=== PATIENT | female | born 1975 | race Caucasian/White ===

== ENCOUNTER 2021-07-11 06:57 | Outpatient (CLI) | payer BC, SELFPAY ==
--- NOTE | 2021-07-11 06:58 | CT_ITS ---
EXAM: CT ABDOMEN WITH INTRAVENOUS CONTRAST CLINICAL INDICATION: Abdominal pain, history of hernia TECHNIQUE: Helically acquired images were obtained of the abdomen with intravenous contrast. This CT exam was performed using one or more of the following dose reduction techniques: automated exposure control, adjustment of the mA and/or kV according to patient size, and/or use of iterative reconstruction technique. This report was created using [employer] report generation technology. Oral contrast was administered. Coronal and sagittal reformatted images were created and reviewed. CONTRAST: 100CC ISOVUE 300 COMPARISON: None. FINDINGS: LOWER THORAX: Unremarkable. Lung bases are clear. No cardiomegaly. No significant pericardial effusion. LIVER: Unremarkable. Homogeneous. No focal mass. GALLBLADDER AND BILE DUCTS: Unremarkable. No calcified gallstones. No gallbladder distention or wall edema. No intra- or extrahepatic biliary ductal dilation. PANCREAS: Unremarkable. No focal cystic or solid mass. SPLEEN: Unremarkable. Normal size without focal cystic or solid mass. ADRENALS: Unremarkable. No nodules. KIDNEYS AND URETERS: Unremarkable. Normal renal size and position. No hydronephrosis. STOMACH AND BOWEL: Periumbilical hernia with defect measuring 5.6 cm wide and hernia sac measuring 4.4 x 7.7 cm (AP by transverse). The hernia sac contains transverse colon. No hernia sac fluid. No stomach or bowel distention. No focal inflammatory change. INTRAPERITONEAL SPACE: Unremarkable. No ascites or other fluid collection. No free air. BONES/JOINTS: Unremarkable. No suspicious lytic or blastic abnormality. SOFT TISSUES: See above. VASCULATURE: Mild atherosclerosis. Abdominal aorta is non-dilated. LYMPH NODES: No enlarged lymph nodes. OTHER FINDINGS: Note: Wall thickening. CT/Abdomen WITH ORAL Cont Only IMPRESSION: Periumbilical hernia containing transverse colon. No evidence of colonic strangulation. No bowel obstruction. Electronically Signed: Jl Cat MD (Brooks) at 9:49 EST ,
== END 2021-07-11 23:59 | disposition home or self-care (01) ==
LOC: CT 06:58
PROVIDERS: PCP Nurse Practitioner Family; Referring Provider Surgery; Visit Provider Surgery
DX: K42.9 Umbilical hernia without obstruction or gangrene (principal); R10.9 Unspecified abdominal pain; Z87.19 Personal history of other diseases of the digestive system; Z98.890 Other specified postprocedural states
CPT/HCPCS: 74150

== ENCOUNTER 2021-08-30 10:36 | Observation (INO) | payer BC, SELFPAY ==
--- NOTE | 2021-08-25 10:56 | EKG12_ITS ---
Test Reason : PREOP Blood Pressure : / mmHG Vent. Rate : 067 BPM Atrial Rate : 067 BPM P-R Int : 162 ms QRS Dur : 122 ms QT Int : 406 ms P-R-T Axes : 046 -09 040 degrees QTc Int : 429 ms Normal sinus rhythm Normal ECG Confirmed by ZACHARY MATHEW, ALLYN ([id number]), medical transcription editor NATTY WHITLEY ([id number]) on 08/26/2021 11:23:55 AM Referred By: Yoni Funes Confirmed By:ALLYN SHARMA MD
[2021-08-25 12:11] LABS: Hematocrit 39.9 % (37-47); Hemoglobin 13.3 g/dL (12.0-15.0); Mean Corp Hgb Conc 33.3 g/dL (32-36); Mean Corpuscular Hgb 29.9 pg (27.0-32.0); Mean Corpuscular Volume 89.7 fL (81-99); Mean Platelet Vol. 8.8 fl (6.2-12.0); Platelet Count 325 K/mm3 (150-450); RBC Distribution Width CV 13.3 % (11.6-14.6); RBC Distribution Width SD 43.9 fl (35.1-43.9); Red Blood Count 4.45 M/mm3 (4.2-5.4); White Blood Count 7.5 K/mm3 (4.4-11.0)
[2021-08-25 12:33] LABS: Anion Gap 5 (5-15); BUN 17 mg/dL (7-18); BUN/Creat Ratio 25.7 RATIO (10-20); Calcium,Total 9.1 mg/dL (8.5-10.1); Chloride 105 mmol/L (98-107); Creatinine, Serum 0.66 mg/dL (0.55-1.02); EST Glomerular Filtration Rate 103 mL/min (>60); Est Glom Filt Rate - Afr Amer 125 mL/min (>60); Glucose 101 mg/dL (74-106); Potassium 3.7 mmol/L (3.5-5.1); Sodium Level 138 mmol/L (136-145)
[2021-08-30] VITALS (10 sets, daily range): BP systolic 109–139; BP diastolic 60–91; PULSE 66–89; RESP 16–18; TEMP 36.6–37.2; O2SAT 92–99; BMI 39.8
--- NOTE | 2021-08-30 06:11 | PCM.HP.BLA ---
History and Physical Date of Admission: 08/30/21 Chief Complaint: hernia repair 08/30 RC Last Picker Required: No Is patient in pain?: No Allergies Gadolinium-MRI Contrast Medium Allergy (Mild, Verified 08/25/21 13:21) Hives naproxen [From Aleve] Allergy (Mild, Verified 08/25/21 13:21) Upset Stomach Medications cholecalciferol (vitamin D3) 125 mcg (5,000 unit) capsule 125 mcg PO DAILY 07/04/21 [History Confirmed 08/25/21] diphenhydramine HCl 25 mg tablet 50 mg PO QHS 07/04/21 [History Confirmed 08/25/21] esomeprazole magnesium 20 mg capsule,delayed release 20 mg PO DAILY 07/04/21 [History Confirmed 08/25/21] hydrochlorothiazide 25 mg tablet 25 tablet PO DAILY 07/04/21 [History Confirmed 08/25/21] lisinopril 10 mg tablet 10 tablet PO DAILY 07/04/21 [History Confirmed 08/25/21] metoprolol succinate 100 mg tablet,extended release 24 hr 100 mg PO DAILY 07/04/21 [History Confirmed 08/25/21] trazodone 100 mg tablet 100 mg PO DAILY 07/04/21 [History Confirmed 08/25/21] docusate sodium 50 mg PO BID 08/23/21 [History Confirmed 08/25/21] fluticasone propionate [Flonase Allergy Relief] 1 spray INTRANASAL QHS 08/23/21 [History Confirmed 08/25/21] potassium 99 mg PO DAILY 08/23/21 [History Confirmed 08/25/21] Is last menstrual period known: No Post menopausal: No Patient : No PFSH Medical History Abdominal pain Acid reflux Anemia Former smoker HTN (hypertension) Insomnia Surgical History H/O umbilical hernia repair S/P hysterectomy S/P nasal septoplasty Family History Mother Heart disease Hypertension Social History Smoking Status: Former smoker alcohol intake: never HPI HPI HPI: STAN BOND, is a 46 F who presents to the office today for an update history and physical. Patient denies recent hospitalizations or illnesses since her last office visit. She denies any medications changes. She notes no recent changes in bowel habits or pain at the hernia site. She denies cardiac and pulmonary history other than hypertension and seasonal allergies. She denies previous complications with anesthesia. She has had multiple abdominal surgeries. Patient's previous history per Dr. Funes: STAN BOND, is a 45 F who presents to the office today for surgical consultation regarding a umbilical hernia. The patient is referred by Mitchell Redd CNP and a written copy of my surgical consult and recommendations will return to her. The patient is concerned that the umbilical hernia is chronically uncomfortable. Calculated body weight is 245 pounds with a BMI of 38.98 The patient states that she had significant amount of abdominal pain March 2020. We have evidence that [facility] listed she was taken to surgery by Dr. Lucía Orta and underwent a neck exploratory laparotomy repair of an umbilical hernia total abdominal hysterectomy bilateral salpingo-oophorectomy lysis of adhesions. Her midline incision was closed with PDS. All of this procedure was done for endometriosis. Apparently extensive amount of lysis of adhesions was performed. There is significant amount of reactive inflammatory change due to the endometriosis. The patient states that soon thereafter she developed recurrent significant bulging at the umbilicus portion and now the whole area bulges out and is quite painful. She claims that she becomes nauseated. She has not required any hospitalization for small bowel obstruction. She has not notified her operating surgeon of this complication. She used to be a cigarette smoker but quit 2 years ago. She denies any bright red blood per rectum or melena. She has not had any current imaging. She is a type II diabetic. She states that she lost more than 50 pounds in weight over the past period of time and was able to come off of her diabetic medications and simply now is diet controlled. STAN BOND, is a 45 F who presents to the office today for ongoing discussion regarding a incarcerated recurrent ventral incisional hernia. The patient had it repaired during a gynecology oncology procedure. It has now recurred. There appears to be a ventral hernia in the supraumbilical position containing transverse colon. No findings suggest bowel obstruction. CT imaging obtained on July 11, 2021 as noted below. The patient notes increasing discomfort in this large bulge of the right of the umbilicus. She takes 2 stool softeners daily. July 11, 2021 EXAM: CT ABDOMEN WITH INTRAVENOUS CONTRAST CLINICAL INDICATION: Abdominal pain, history of hernia TECHNIQUE: Helically acquired images were obtained of the abdomen with intravenous contrast. This CT exam was performed using one or more of the following dose reduction techniques: automated exposure control, adjustment of the mA and/or kV according to patient size, and/or use of iterative reconstruction technique. This report was created using [employer] report generation technology. Oral contrast was administered. Coronal and sagittal reformatted images were created and reviewed. CONTRAST: 100CC ISOVUE 300 COMPARISON: None. FINDINGS: LOWER THORAX: Unremarkable. Lung bases are clear. No cardiomegaly. No significant pericardial effusion. LIVER: Unremarkable. Homogeneous. No focal mass. GALLBLADDER AND BILE DUCTS: Unremarkable. No calcified gallstones. No gallbladder distention or wall edema. No intra- or extrahepatic biliary ductal dilation. PANCREAS: Unremarkable. No focal cystic or solid mass. SPLEEN: Unremarkable. Normal size without focal cystic or solid mass. ADRENALS: Unremarkable. No nodules. KIDNEYS AND URETERS: Unremarkable. Normal renal size and position. No hydronephrosis. STOMACH AND BOWEL: Periumbilical hernia with defect measuring 5.6 cm wide and hernia sac measuring 4.4 x 7.7 cm (AP by transverse). The hernia sac contains transverse colon. No hernia sac fluid. No stomach or bowel distention. No focal inflammatory change. INTRAPERITONEAL SPACE: Unremarkable. No ascites or other fluid collection. No free air. BONES/JOINTS: Unremarkable. No suspicious lytic or blastic abnormality. SOFT TISSUES: See above. VASCULATURE: Mild atherosclerosis. Abdominal aorta is non-dilated. LYMPH NODES: No enlarged lymph nodes. OTHER FINDINGS: Note: Wall thickening. CT/Abdomen WITH ORAL Cont Only IMPRESSION: Periumbilical hernia containing transverse colon. No evidence of colonic strangulation. No bowel obstruction. Electronically Signed: Jl Cat MD (Brooks) at 9:49 EST Reading Location ID and State: / [place] , Service support , ROS General General: No weight change, appetite, fatigue, colon cancer, breast cancer or weakness HEENT HEENT: No difficulty swallowing, eye injury, eye surgery, swollen glands or hoarseness Endo Endocrine: No thyroid disease, diabetes mellitus, thyroid cancer, Hair loss, heat intolerance or cold intolerance Skin Skin: No rash or changing moles Breast Breast: No left breast lump, right breast lump, nipple discharge, breast pain, abnormal mammogram, abnormal US or breast enlargement [facility] Musculoskeletal: No back problems, arthritis, rheumatoid arthritis, gout or joint pain Cardio Cardiovascular: Yes high blood pressure; No murmur, pacemaker, heart disease, atrial fibrillation, heart attack, heart stent, palpitations, shortness of breat with exertion or chest pain Psych Psychiatric: No depression, anxiety or hearing voices Resp Respiratory: No shortness of breath, No sleep apnea, No cough, No COPD, No asthma, No emphysema and No wheezing Gastro Gastrointestinal: Yes abdominal pain, Yes nausea or vomiting, No diarrhea, Yes constipation, No blood in stool, Yes acid reflux, No hemorrhoids, No ulcers, No gallbladder problem and No black,tarry stools Aj Hematologic: No blood thinners, No blood disorders, No bleeding, No anemia and No blood clots Neuro Neurologic: No system reviewed and no additional complaints, except as documented, No as per HPI, No abnormal gait, No abnormal hearing, No abnormal movements, No abnormal speech, No behavioral changes, No burning sensations, No confusion, No convulsions, No disequilibrium, No dizziness, No localized weakness, No frequent falls, No headache(s), No lack of coordination, No loss of vision, No memory loss, No numbness, No other visual disturbances, No radicular pain, No restless legs, No sensory deficit, No syncope, No tingling, No tremor(s), No weakness and No other Exam Const General: cooperative, healthy appearing, comfortable and no acute distress Nutritional Appearance: obese [facility] Head: normal to inspection Eyes General: appearance normal, both eyes and all related structures Neck Neck: normal visual inspection Neck mass: No Resp Effort & Inspection: normal respiratory effort Auscultation: clear to auscultation bilaterally Cardio Rate: regular rate Rhythm: regular rhythm GI Inspection: normal to inspection Palpation: soft and hernia Other: Midline incision that was initiated to the left of the umbilicus down to the pubis. Significant defect noted at the umbilical level appears to be multifaceted tender and difficult to completely reduce. Bowel loops palpable. The remainder of the abdomen is soft and nontender. [facility] Cervical Spine: normal cervical lordosis Skin General: no rashes or lesions noted Neuro General: no focal motor deficits and CN's II-XI intact bilaterally Extrem General: normal to inspection Psych Appearance: grossly normal Affect: normal affect Assessment and Plan Assessment and Plan (1) Ventral incisional hernia without obstruction or gangrene: Status: Acute Plan - Court RASHID, CINDY: Dr. Funes will plan to perform a hybrid open and laparoscopic ventral incisional hernia repair with mesh. Procedure details, risks and benefits have been reviewed. Patient has had the opportunity to ask and have questions answered. Post-operative instructions were provided to the patient. Patient has had the opportunity to ask and have questions answered. Patient verbally understands and agrees with the plan. Side Notes per Dr. Funes: Complex recurrent incarcerated ventral incisional hernia to the right of the umbilicus involving a significant loop of transverse colon. There is a significant fascial gap. I have discussed with the patient treatment options. I propose a direct approach in that location taking great caution as based upon the CT imaging the transverse colon is immediately beneath the skin. There appears to be an additional small defect inferior to the major defect. Anticipate sharp dissection at this area and identification of the fascial edges with then subsequent safe laparoscopic port insertions. Recurrent ventral incisional hernia. Plan hybrid repair. The patient is aware of technique, benefit, risk and alternatives. We will proceed as noted. She is additionally aware that I anticipate a transabdominal plane nerve block to assist her with postoperative comfort. She is aware that she may have extensive intra-abdominal adhesions from her previous MILITARY NURSE surgery. Yoni Funes M.D., F.A.C.S.
--- NOTE | 2021-08-30 07:12 | DCINST_ITS ---
Documented by User: Dr. Yoni Funes MD 08/30/21 07:13 Discharge Instructions Diet Discharge Diet: Light diet - advance as tolerated (if you have questions about your diet instructions, please talk to you doctor.) Activity Discharge Activity: May Not Drive (for 3-5 days or while taking narcotic pain medicine.) May shower in (days): 1 Lifting Restrictions: 10 pounds Dressing / Incision Call your doctor if your incision/area has: Continuous Slow Oozing, Sudden Increased Bleeding, Increased Pain/ Swelling, Increased Redness and Foul Smelling Discharge Call your doctor if you observe: Fever of 101 or Higher Suture Line Care: Avoid Pulling/Pushing and Avoid Pinching/Bending Additional Dressing/Incision Instructions:: Change or remove dressing in 4 days. Leave steri-strips in place for 1 week. Follow Up Care Please Follow Up With: Yoni Funes MD When: Call [phone] to make an appointment to be seen in about 10 days. Test Results: Test results from this visit will be discussed in further detail at your follow-up appointment, if applicable. Discharge Plan Admission Admit Date/Time: 08/30/21 10:36 Primary Reason for Your Visit: Ventral incisional hernia repair with mesh Attending Provider: Yoni Funes Primary Care Provider: Mitchell Redd NP Instructions Additional Instructions / Restrictions: You may take Miralax daily to assist with bowel movements Discharge Orders/Prescriptions Prescriptions: New oxycodone 5 mg Tablet 5 mg PO Q6H PRN PRN (Reason: Pain Score 4-10) 3 Days Qty: 10 RF: 0 Continued hydrochlorothiazide 25 mg tablet 25 tablet PO DAILY RF: 0 lisinopril 10 mg tablet 10 tablet PO DAILY RF: 0 trazodone 100 mg tablet 100 mg PO DAILY RF: 0 metoprolol succinate 100 mg tablet extended release 24 hr 100 mg PO DAILY RF: 0 esomeprazole magnesium [Nexium] 20 mg capsule,delayed release(DR/EC) 20 mg PO DAILY RF: 0 cholecalciferol (vitamin D3) 125 mcg (5,000 unit) capsule 125 mcg PO DAILY RF: 0 diphenhydramine HCl [Benadryl Allergy] 25 mg tablet 50 mg PO QHS RF: 0 docusate sodium 50 mg Tablet 50 mg PO BID RF: 0 potassium 95 mg Tablet 99 mg PO DAILY RF: 0 fluticasone propionate [Flonase Allergy Relief] 50 mcg/actuation [place],Suspension 1 spray INTRANASAL QHS RF: 0 Referrals / Follow Up: Mitchell Redd NP, HEALTHCARE SCIENCE SPECIALIST-C [Primary Care Provider] - Disposition Disposition (needs filled in before D/C Order can be placed): Home, Self Care Documented by User: Court RASHID PA-C 08/31/21 15:02 Discharge Plan Admission Admit Date/Time: 08/30/21 10:36 Primary Reason for Your Visit: Ventral incisional hernia repair with mesh Attending Provider: Yoni Funes Primary Care Provider: Mitchell Redd NP Instructions Additional Instructions / Restrictions: You may take Miralax daily to assist with bowel movements Discharge Orders/Prescriptions Prescriptions: New oxycodone 5 mg Tablet 5 mg PO Q6H PRN PRN (Reason: Pain Score 4-10) 3 Days Qty: 10 RF: 0 Continued hydrochlorothiazide 25 mg tablet 25 tablet PO DAILY RF: 0 lisinopril 10 mg tablet 10 tablet PO DAILY RF: 0 trazodone 100 mg tablet 100 mg PO DAILY RF: 0 metoprolol succinate 100 mg tablet extended release 24 hr 100 mg PO DAILY RF: 0 esomeprazole magnesium [Nexium] 20 mg capsule,delayed release(DR/EC) 20 mg PO DAILY RF: 0 cholecalciferol (vitamin D3) 125 mcg (5,000 unit) capsule 125 mcg PO DAILY RF: 0 diphenhydramine HCl [Benadryl Allergy] 25 mg tablet 50 mg PO QHS RF: 0 docusate sodium 50 mg Tablet 50 mg PO BID RF: 0 potassium 95 mg Tablet 99 mg PO DAILY RF: 0 fluticasone propionate [Flonase Allergy Relief] 50 mcg/actuation [place],Suspension 1 spray INTRANASAL QHS RF: 0 Referrals / Follow Up: Mitchell Redd NP, HEALTHCARE SCIENCE SPECIALIST-C [Primary Care Provider] - Disposition Disposition (needs filled in before D/C Order can be placed): Home, Self Care
[2021-08-30] MEDS: Lactated Ringers 1,000 ML 15 ML IV ×2 (07:18→10:30)
[2021-08-30] MEDS: Cefazolin 2 GM in 0.9% Normal Saline 100 ML IV (07:30)
--- NOTE | 2021-08-30 07:30 | HERN_PTH ---
PATIENT: STAN BOND LOC: MS3 U#:[id number] AGE/SX: 46/F ROOM: MD322 RE08/30/[address]: Dr. Yoni Funes MD : [id number] BED: 1 DIS: 08/31/2021 SPEC #: [id number] RECD: 08/30/21 11:07 STATUS: DEBBIE BLESSING #: [id number] CARLOTTA: 08/30/21 07:[address]: Yoni Funes DEPT: SURGICAL PATHOLOGY RECD BY: Delaney Rivera ENTERED: 08/30/21 12:28 SP TYPE: Hernia OTHR DR: ZAHIDA Felder Tissues: HERNIA Procedures: Surgery Specimen Level II HEADER OPERATION: Lysis of adhesions, hybrid open and laparoscopic PRE-OP DIAGNOSIS: Ventral incisional hernia TISSUE SUBMITTED: Ventral hernia sac and contents MICROSCOPIC DIAGNOSIS Ventral hernia sac and contents, excision: Fibrosis and minimal chronic inflammation. AM:sharon 08/31/2021 MICROSCOPIC DESCRIPTION Slides are reviewed. GROSS DESCRIPTION Received in fixative is one container labeled with the patient's name and designated hernia sac and contents. The specimen consists of multiple irregular fragments of pink-yellow fibrofatty tissue ranging in size from 1.8 to 10 cm. Serial sections do not reveal mass lesions. Singer And Unloader sections are submitted in one cassette. / AM:sharon 08/30/2021 TC:5 CPT: 89954
[2021-08-30] MEDS: Bupivacaine 0.25% 30 ML Vial (07:55)
[2021-08-30] MEDS: 0.9% Normal Saline (Pres. free 10 ML Vial (07:55)
[2021-08-30] MEDS: BUPIVACAINE LIPOSOME/PF 20 ML VIAL OPERA.SITE (07:55)
[2021-08-30] MEDS: Lidocaine 1% (20 ml mdv) 20 ML Vial (07:55)
--- NOTE | 2021-08-30 10:28 | OP.PCM_ITS ---
Problems Associated Problem List Diagnoses (1) Ventral incisional hernia without obstruction or gangrene: Report of Operation Date of Procedure: 08/30/21 Pre-Operative Diagnosis: Current ventral incisional hernia Post-Operative Diagnosis: Recurrent ventral incisional hernia with extensive intra-abdominal adhesions Surgery/Procedure Performed:: Laparoscopic lysis of adhesions. Hybrid open and laparoscopic recurrent ventral incisional herniorrhaphy with 25.4 x 20.[address] mesh. Bilateral transabdominal plane block Ventral light ST. Reference [id number]. Lot [id number], expiry date 08/15/2022 Description of Surgical Findings:: Timeout informed consent was obtained. 46-year-old female was taken to the operating placed on the table underwent general endotracheal intubation esthesia. Ancef 2 g were given intravenously. The abdomen was sterilely prepped and draped. Ioban draping was used as well. A supra and vertical transverse incision was created sharp blunt dissection was used to identify the sizable hernia sac. Initially I tried to free the hernia sac and get into the retrorectus plane but this was densely adherent. Colon was distended and pushing out through the incision. I eventually after trying to simply amputated the sac. There were multiple intra-abdominal adhesions of the colon and greater omentum to the anterior abdominal wall which I partially lysed just to gain access to the fascia. I then approximated the fascia midline vertically with multiple simple sutures of 0 Nurolon. Left a gap inserted in a sun catheter insufflated the abdomen. There remained multiple adhesions of omentum to the anterior abdominal wall superiorly and they were densely adherent inferiorly and suprapubically. Taking over 1 hour of adhesiolysis time tr ansected these adhesions using harmonic scalpel for hemostasis. Finding with no bowel injury was able to completely mobilize greater omentum placed that back over the intestine. Made measurements and then I selected a 25.4 x 20.[address] mesh. 4 corner sutures of 2-0 Prolene was placed. The mesh was furled placed within the abdomen unfurled making sure that the nonadherent side was ad jacent to the greater omentum. I used a grainy needle and at 4 corners. She did the mesh up. The inferior suture broke so I had to use a grainy needle and a 0 Prolene to secure that area. Having achieved that I had very nice positioning of the mesh using secure strap at approximately 2 cm intervals completely around the periphery. I further secured it midline and in the midportion of the periphery to assure good adherence and minimize chance for seroma. I felt that excellent coverage and positioning was achieved. I then used saline to irrigate moisten the mesh. I assured that the greater omentum was covering the S small bowel. I then used 0.5% Marcaine mixed with 1% lidocaine mixed with Exparel and did a bilateral transabdominal spine block under laparoscopic visualization. I had good visualization was able to achieve bilateral subcostal and lateral abdominal injections. The abdomen was now allowed to deflate of the CO2. The fascia at the Goodwin site with further secured with simple sutures of 0 Nurolon. The subcutaneous tissue in that area is partially approximated interrupted 3-0 Vicryl. Skin edges were approximated and applied a running subicular 4 Monocryl. Steri- Strips Telfa OpSite dressings applied. Sponge and instrument and needle counts were reported to the surgeon be correct. Specimens hernia sac. Drains none. Blood loss minimal. Operative time appr oximately 2 hours and 45 minutes. The patient was taken to the recovery room in satisfactory addition without apparent complication Yoni Funes M.D., F.A.C.S. Surgeon: Yoni Funes Type of Anesthesia: General and Local Anesthesiologist: Alicia Davidson
[2021-08-30] MEDS: Lactated Ringers 1,000 ML 40 ML IV (12:11)
[2021-08-30] MEDS: Acetaminophen 500 MG Tablet 1000 MG PO ×3 (12:19→23:44)
--- NOTE | 2021-08-30 14:38 | PCM.PN.SRG ---
Subjective Subjective Notes abdominal soreness however she has been already able to do 2 laps around the unit. No nausea. She is hungry. Objective Data Objective Data Vital Signs: Vital Signs Temp Pulse Resp BP Pulse Ox 98 F 84 18 124/75 H 94 08/30/21 13:41 08/30/21 13:41 08/30/21 13:41 08/30/21 13:41 08/30/21 13:41 Oxygen Delivery Method Room Air Weight: 246 lb 14.684 oz Body Mass Index (BMI) 39.8 Intake & Output: Intake and Output for Last 24 Hours 08/28/21 08/29/21 08/30/21 23:59 23:59 23:59 Intake Total 1133.5 / 1133.5 Output Total 200 / 200 Balance 933.5 / 933.5 Lab / Micro Data Result Diagrams: 08/25/21 11:17 08/25/21 11:17 Micro: Microbiology 08/25/21 10:00 Interface Orders SARS-CoV-2 Antigen (Rapid) - Final Assessment & Plan Assessment/Plan (1) Ventral incisional hernia without obstruction or gangrene: PLAN: For the extent of the operative intervention the patient is doing remarkably well. I will initiate on a clear liquid diet. She has been encouraged to continue to ambulate. Progress and prognosis at this point are good. Yoni Funes M.D., F.A.C.S.
[2021-08-30] MEDS: oxyCODONE 5 MG Tablet PO ×2 (14:40→21:01)
[2021-08-30] MEDS: DiphenhydrAMINE 25 MG Capsule 50 MG PO (21:00)
[2021-08-30] MEDS: Docusate Sodium 100 MG Capsule PO (21:00)
[2021-08-31 03:32] VITALS: BP 142/69; PULSE 71; RESP 16; TEMP 36.9; O2SAT 97
[2021-08-31] MEDS: oxyCODONE 5 MG Tablet PO ×2 (04:48→16:28)
[2021-08-31] MEDS: Acetaminophen 500 MG Tablet 1000 MG PO ×2 (04:56→14:33)
--- NOTE | 2021-08-31 05:33 | PCM.PN.SRG ---
Subjective Subjective Patient is more sore in the abdomen this morning. Otherwise doing well. I found her standing at the bedside. She has had a minimal amount of flatus. Absolutely no nausea. Objective Data Objective Data Vital Signs: Vital Signs Temp Pulse Resp BP Pulse Ox 98.5 F 71 16 142/69 H 97 08/31/21 03:32 08/31/21 03:32 08/31/21 03:32 08/31/21 03:32 08/31/21 03:32 Oxygen Delivery Method Room Air Weight: 246 lb 14.684 oz Body Mass Index (BMI) 39.8 Intake & Output: Intake and Output for Last 24 Hours 08/29/21 08/30/21 08/31/21 23:59 23:59 23:59 Intake Total 1433.5 / 1433.5 Output Total 200 / 200 Balance 1233.5 / 1233.5 Lab / Micro Data Result Diagrams: 08/25/21 11:17 08/25/21 11:17 Micro: Microbiology 08/25/21 10:00 Interface Orders SARS-CoV-2 Antigen (Rapid) - Final Physical Exam Narrative Alert, comfortable, no distress Resp normal respiratory effort GI GI Narrative: Soft, distended, occasional bowel sounds, dressings clean and dry Assessment & Plan Assessment/Plan (1) Ventral incisional hernia without obstruction or gangrene: PLAN: Patient is making excellent progress so far. Encourage ambulation. Will initiate transitional diet. Hopeful discharge later today.
[2021-08-31 06:02] LABS: Hematocrit 39.8 % (37-47); Hemoglobin 13.1 g/dL (12.0-15.0); Mean Corp Hgb Conc 32.9 g/dL (32-36); Mean Corpuscular Hgb 29.6 pg (27.0-32.0); Mean Platelet Vol. 8.6 fl (6.2-12.0); Platelet Count 339 K/mm3 (150-450); RBC Distribution Width CV 13.7 % (11.6-14.6); RBC Distribution Width SD 45.2 fl (35.1-43.9); Red Blood Count 4.42 M/mm3 (4.2-5.4); White Blood Count 11.1 K/mm3 (4.4-11.0)
[2021-08-31 06:46] LABS: Anion Gap 5 (5-15); BUN 12 mg/dL (7-18); BUN/Creat Ratio 16.8 RATIO (10-20); Calcium,Total 8.6 mg/dL (8.5-10.1); Chloride 106 mmol/L (98-107); Creatinine, Serum 0.71 mg/dL (0.55-1.02); EST Glomerular Filtration Rate 95 mL/min (>60); Est Glom Filt Rate - Afr Amer 114 mL/min (>60); Estimated Creatinine Clearance 94.66 ml/min; Glucose 135 mg/dL (74-106); Potassium 4.3 mmol/L (3.5-5.1); Sodium Level 137 mmol/L (136-145)
[2021-08-31 07:58] VITALS: BP 115/70; PULSE 77; RESP 16; TEMP 36.6
[2021-08-31] MEDS: Potassium Chloride Oral Tablet 10 MEQ PO (08:14)
[2021-08-31] MEDS: Enoxaparin 40 MG/0.4 ML Syringe SC (10:45)
[2021-08-31] MEDS: hydroCHLOROthiazide 25 MG Tablet PO (10:45)
[2021-08-31] MEDS: traZODone 100 MG Tablet PO (10:45)
[2021-08-31] MEDS: Docusate Sodium 100 MG Capsule PO (10:45)
[2021-08-31 10:47] VITALS: PULSE 77
[2021-08-31] MEDS: Lisinopril 10 MG Tablet PO (10:47)
[2021-08-31] MEDS: Pantoprazole Sodium 20 MG Tablet PO (10:47)
[2021-08-31] MEDS: Metoprolol(XL)Succ 100 MG Tablet PO (10:47)
--- NOTE | 2021-08-31 10:50 | CASEMGMT ---
RN CM Face to Face with patient for initial transition planning/care coordination assessment. RN CM introduced self and role at [facility]. Patient lying in bed, alert and oriented. Patient willing to participate in assessment and is able to answer all questions appropriately. Care providers, pharmacy, and demographics verified. Patient wishes to discharge home, denies need for home health at this time. Patient states she has no further needs or concerns at this time. CM to follow for discharge planning needs that may arise. PCP: Mitchell Redd [employer] [employer] [employer] Specialists: none Preferred Pharmacy: [facility] at discharge. Insurance: [employer] Prescription Benefit: yes Living Will/HPOA: none LNOK: Living Arrangements: Patient lives with and mother in 2 story home with bed and bath on first floor. Patient states she is independent at home. Transportation: self, , mother DME/HHC: Patient states she has shower chair, cane, walker, wheelchair at home Patient denies previous HHC or SNF. Disposition Plan: [facility], RN, CM
[2021-08-31 11:32] VITALS: BP 88/64; PULSE 56; O2SAT 99
[2021-08-31 14:58] VITALS: BP 131/66; PULSE 72; RESP 18; TEMP 36.8; O2SAT 96
--- NOTE | 2021-08-31 15:02 | PCM.PN.BLA ---
Progress Note Patient evaluated this afternoon. She notes she is urinating well. Passing very small amount of flatus. No BM. Denies nausea, vomiting. Patient notes discomfort with movement. She states she would like to go home. Physical Exam GI Inspection: incision intact and healing well and central obesity Auscultation: hypoactive bowel sounds Palpation: soft and tender Assessment & Plan Assessment/Plan (1) Ventral incisional hernia without obstruction or gangrene: PLAN: Vitals are stable Patient ready for discharge
[2021-08-31 17:00] VITALS: BP 100/77; PULSE 73; RESP 16; TEMP 37.2; O2SAT 96
== END 2021-08-31 17:48 | disposition home or self-care (01) | DRG 337 ==
LOC: SDC 11:28 → MS3 08-31 08:40
PROVIDERS: Admitting Provider Surgery; PCP Nurse Practitioner Family; Referring Provider Surgery; Visit Provider Surgery
PROC: 0WQF4ZZ Repair Abdominal Wall, Percutaneous Endoscopic Approach (ICD-10-PCS; CPT 49565; principal; 2021-08-30 07:10)
DX: K43.2 Incisional hernia without obstruction or gangrene (principal); E11.9 Type 2 diabetes mellitus without complications; I10 Essential (primary) hypertension; K21.9 Gastro-esophageal reflux disease without esophagitis; K66.0 Peritoneal adhesions (postprocedural) (postinfection); E66.9 Obesity, unspecified; Z68.39 Body mass index [BMI] 39.0-39.9, adult; Z79.899 Other long term (current) drug therapy; Z87.891 Personal history of nicotine dependence
CPT/HCPCS: 49565; 49568; 64488; 00832; 36415; 80048; 85027; 87426; 88302; 93005; 94762; 96360; 96372; 99218; C9803; J7040; J7120; C1781; G0378; J2405; J3490